=== PATIENT | female | born 1995 | race American Indian/Alaskan Native ===

== ENCOUNTER 2024-05-01 22:33 | Emergency (ER) | payer MEDICAID, SELFPAY ==
[2024-05-01 22:47] VITALS: PULSE 98; RESP 21; O2SAT 100
[2024-05-01 22:50] VITALS: BP 118/69; PULSE 97; RESP 13; TEMP 37.4; O2SAT 98; BMI 22.3
--- NOTE | 2024-05-01 22:56 | DI.RAD.S_ITS ---
PROCEDURE: XR CHEST 1V INDICATIONS: chest pain TECHNIQUE: One view of the chest was acquired. COMPARISON: None. FINDINGS: Surgical changes and devices: Median sternotomy wires and prosthetic heart valves are seen Lungs and pleura: Lungs are clear. No pleural effusions or pneumothorax. Mediastinum: Mediastinal contours appear normal. Heart size is normal. Bones and chest wall: No suspicious bony lesions. Overlying soft tissues appear unremarkable. IMPRESSION: No acute cardiopulmonary pathology. Dictated by: Chai Trevino M.D. on 05/01/2024 at 23:10 Approved by: Chai Trevino M.D. on 05/01/2024 at 23:11
--- NOTE | 2024-05-01 22:56 | EKG_ITS ---
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
[2024-05-01 23:00] VITALS: BP 114/55; PULSE 99; RESP 15; O2SAT 99
[2024-05-01 23:03] LABS: Add Manual Diff / Slide Review NO; Basophils Absolute Auto 100 /uL (0-100); Basophils Percent Auto 0.7 % (0-2); Eosinophils Absolute Auto 0 /uL (0-450); Eosinophils Percent Auto 0.5 % (2-4); Hematocrit 35.5 % (36-46); Hemoglobin 11.6 g/dL (12.0-16.0); Lymphocytes Absolute Auto 1300 /uL (1100-4500); Lymphocytes Percent Auto 15.8 % (25-40); Mean Corpuscular HGB Conc 32.8 % (30-36); Mean Corpuscular Hemoglobin 25.5 PG (26-34); Mean Corpuscular Volume 77.8 fL (80-100); Monocytes Absolute Auto 600 /uL (0-900); Neutrophils Absolute Auto 6100 /uL (1500-7000); Platelet Count 282 X10^3/uL (150-400); Red Blood Cell Count 4.56 X10^6/uL (4.0-5.2); Red Cell Distribution Width 15.9 % (11.6-14.8)
--- NOTE | 2024-05-01 23:10 | ED.CHESTPAIN ---
HPI - Chest Pain General Chief Complaint: Chest Pain Stated Complaint: fast heart rate, has mech. 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 Patient reports fatigue, fast heart rate, lightheadedness, intermittent chest pains, left upper extremity weakness. These symptoms has been ongoing for nearly 1 month. They report multiple visits to [facility] in [place], but no cause has been found. Patient's last visit to the emergency department was 04/18/2024, where an echocardiogram showed EF of 65% without wall motion abnormalities or other concerning findings. A Zio patch was placed and patient was sent home. Parents at bedside state that they are frustrated at the lack of answers and they are at a different facility today to see if they can find answers for why their daughter is having so many symptoms. Patient states that since her last ER visit her left upper extremity has felt weaker than usual. This has been ongoing for the last 3 weeks, worse in the last 1 week. Visit report from [facility] show ED visits 04/09, 04/16, and 04/18. Related Data Home Medications Medication Instructions Recorded Confirmed hydroxyzine HCl 25 mg tablet 25 mg PO Q8H PRN anxiety 05/02/24 05/02/24 warfarin 1 mg tablet 0.5 mg PO DAILY 05/02/24 05/02/24 warfarin 5 mg tablet 5 mg PO DAILY 05/02/24 05/02/24 Allergies Allergy/AdvReac Type Severity Reaction Status Date / Time No Known Drug Allergies Allergy Verified 05/02/24 00:22 Patient History Social History Smoking Status: Never smoker Smoking Status: Never smoker Substance Use Type: does not use Exam Initial Vital Signs Initial Vital Signs: Vital Signs Pulse Rate 98 H 05/01/24 22:47 Respiratory Rate 21 05/01/24 22:47 Pulse Oximetry 100 05/01/24 22:47 Const: Awake, alert, appears chronically unwell appearing, frail, older than stated age, nontoxic appearing Cardiac: regular rate, regular rhythm RESP: unlabored, clear bilaterally, no wheezing GI: Soft, nontender, nondistended, no rebound, no guarding MSK: No edema, full range of motion, pulses equal Skin: Warm, Dry, intact, no rashes Neuro: AO x3, CN II-XII grossly intact, moves all extremities Course Orders Ordered: ED Orders 05/01/24 22:56 XR chest 1V Stat Complete Blood Count AUTO DIFF Stat Comprehensive Metabolic Panel Stat Lipase Stat Troponin & CK Cardiac Panel Stat EKG-12 Lead Stat 05/02/24 00:14 Prothrombin Time INR Stat Urine Drug Screen, Rapid Stat 05/02/24 00:16 CT head/brain wo con Stat 05/02/24 00:17 CT angio chest PE protocol Stat 05/02/24 00:21 CT angio head and neck Stat Discontinued Medications Hydroxyzine HCl (Hydroxyzine Hcl 25 Mg Tablet) 50 mg PO NOW ONE Stop: 05/02/24 00:29 Last Admin: 05/02/24 00:32 Dose: 50 mg Documented By: Sodium Chloride (Normal Saline 0.9%) 1,000 mls @ 1,000 mls/hr IV BOLUS ONE Stop: 05/02/24 01:15 Last Infusion: 05/02/24 02:15 Dose: Infused Documented By: Infusion: 05/02/24 01:00 Dose: 1,000 mls/hr Documented By: Infusion: 05/02/24 00:23 Dose: 0 mls/hr Documented By: Admin: 05/02/24 00:22 Dose: 1,000 mls/hr Documented By: Vital Signs Vital signs: Vital Signs - 8 hr 05/01/24 22:47 05/01/24 22:50 05/01/24 23:00 Temperature 99.3 F Pulse Rate 98 H 97 H 99 H Respiratory Rate 21 13 15 Blood Pressure 118/69 Pulse Oximetry 100 98 99 Oxygen Delivery Method Room Air 05/01/24 23:00 05/01/24 23:34 05/01/24 23:34 Temperature Pulse Rate 94 H Respiratory Rate Blood Pressure 114/55 L 105/64 Pulse Oximetry 100 Oxygen Delivery Method Room Air 05/02/24 00:00 05/02/24 00:00 05/02/24 00:30 Temperature Pulse Rate 96 H 93 H Respiratory Rate 19 17 Blood Pressure 100/56 L Pulse Oximetry 99 99 Oxygen Delivery Method Room Air 05/02/24 00:30 05/02/24 00:59 05/02/24 00:59 Temperature Pulse Rate 86 Respiratory Rate 19 Blood Pressure 95/62 103/62 Pulse Oximetry 100 Oxygen Delivery Method 05/02/24 01:00 05/02/24 01:00 05/02/24 01:30 Temperature Pulse Rate 88 87 84 Respiratory Rate 21 16 17 Blood Pressure 103/65 Pulse Oximetry 100 100 100 Oxygen Delivery Method Room Air 05/02/24 01:30 05/02/24 02:00 05/02/24 02:00 Temperature Pulse Rate 88 Respiratory Rate 14 Blood Pressure 98/61 101/59 L Pulse Oximetry 100 Oxygen Delivery Method 05/02/24 02:16 05/02/24 02:16 05/02/24 02:30 Temperature Pulse Rate 86 84 Respiratory Rate 16 19 Blood Pressure 106/61 Pulse Oximetry 100 100 Oxygen Delivery Method 05/02/24 02:30 Temperature Pulse Rate Respiratory Rate Blood Pressure 106/61 Pulse Oximetry Oxygen Delivery Method MDM - Chest Pain Differential Diagnosis Differential diagnosis: Likely atypical chest pain, costochondritis and chest pain Lab Data 05/01/24 22:56 05/01/24 22:56 Labs: Lab Results 05/01/24 05/01/24 Range/Units 22:56 23:39 WBC 8.0 (4.5-11.0) X10^3/uL RBC 4.56 (4.0-5.2) X10^6/uL Hgb 11.6 L (12.0-16.0) g/dL Hct 35.5 L (36-46) % MCV 77.8 L (80-100) fL MCH 25.5 L (26-34) PG MCHC 32.8 (30-36) % RDW 15.9 H (11.6-14.8) % Plt Count 282 (150-400) X10^3/uL Neut % (Auto) 76.0 H (50-75) % Lymph % (Auto) 15.8 L (25-40) % [place] % (Auto) 7.0 (3-14) % Eos % (Auto) 0.5 L (2-4) % Baso % (Auto) 0.7 (0-2) % Neut # (Auto) 6100 (0067-2938) /uL Lymph # (Auto) 1300 (8546-1593) /uL [place] # (Auto) 600 (0-900) /uL Eos # (Auto) 0 (0-450) /uL Baso # (Auto) 100 (0-100) /uL PT 20.0 H (9.4-12.5) SECONDS INR 1.7 H (0.9-1.3) Sodium 138 (137-145) mmol/L Potassium 3.7 (3.4-5.1) mmol/L Chloride 104 (98-107) mmol/L Carbon Dioxide 23 (22-32) mmol/L BUN 5 L (7-17) mg/dL Creatinine 0.63 (0.52-1.04) mg/dL Estimated GFR > 60 (>60) mL/min BUN/Creatinine Ratio 7.9 (6-22) Glucose 93 (70-100) mg/dL Calcium 9.1 (8.4-10.2) mg/dL Total Bilirubin 0.6 (0.2-1.3) mg/dL AST 37 H (14-36) IU/L ALT 29 (<35) IU/L Alkaline Phosphatase 41 (38-126) U/L Total Creatine Kinase 38 (30-135) U/L Troponin I < 0.012 (0.01-0.034) ng/mL Total Protein 7.5 (6.3-8.2) g/dL Albumin 4.4 (3.5-5.0) g/dL Globulin 3.1 (1.7-4.1) g/dL Albumin/Globulin Ratio 1.4 (1.0-2.8) Lipase 154 (23-300) U/L U Opiates 300ng/mL cut Negative (Negative) Ur Oxycodone Screen Negative (Negative) Urine Methadone Screen Negative (Negative) Ur Barbiturates Screen Negative (Negative) U Tricyclic Antidepress Negative (Negative) Ur Phencyclidine Scrn Negative (Negative) Ur Amphetamines Screen Negative (Negative) U Methamphetamines Scrn Negative (Negative) Ur MDMA Scrn (Ecstasy) Negative (Negative) U Benzodiazepines Scrn Negative (Negative) Urine Cocaine Screen Negative (Negative) U Marijuana (THC) Screen Positive H (Negative) Urine pH Normal (Normal) Urine Specific [place] Normal (Normal) Ur Creatinine Normal (Normal) Point of Care Testing Test Results Negative Urine Dip Bedside Urine Glucose Negative Bedside Urine Bilirubin - Negative Bedside Urine Ketone - Negative Urine Specific [place] 1.015 Bedside Urine Occult Blood - Negative Bedside Urine pH 6.0 Bedside Urine Protein - Negative Bedside Urine Urobilinogen - Negative Bedside Urine Nitrite - Negative Bedside Urine Leukocytes - Negative Esterase Imaging Data CT scan - head: Radiologist's Impression: PROCEDURE: CT HEAD/BRAIN WO CON INDICATIONS: L ARM WEAKNESS X 3 WKS, WORSENING TECHNIQUE: Noncontrast 4.5 mm thick angled axial sections acquired from the foramen magnum to the vertex, with coronal and sagittal reformats. For radiation dose reduction, the following was used: automated exposure control, adjustment of mA and/or kV according to patient size. COMPARISON: None. FINDINGS: Image quality: Diagnostic. CSF spaces: Basal cisterns are patent. No extra-axial fluid collections. Ventricles are normal in size and shape. Brain: No midline shift. No intracranial masses or hemorrhage. Gonzalez-white matter interface is normal. Skull and face: Calvarium and visualized facial bones are intact, without suspicious lesions. Sinuses: Visualized sinuses and mastoids are clear. IMPRESSION: No acute intracranial pathology. Dictated by: Chai Trevino M.D. on 05/02/2024 at 1:18 Approved by: Chai Trevino M.D. on 05/02/2024 at 1:19 CT scan - chest: Radiologist's Impression: PROCEDURE: CT ANGIO CHEST PE PROTOCOL INDICATIONS: CHEST PAINS, PALPITATIONS, MULTIPLE ER VISITS TECHNIQUE: After the administration of intravenous contrast, 2 mm thick sections acquired from the pulmonary apices to the posterior costophrenic angles. 3-dimensional maximum intensity projection (MIP) coronal and sagittal reformats were then acquired through the thorax. For radiation dose reduction, the following was used: automated exposure control, adjustment of mA and/or kV according to patient size. COMPARISON: None. FINDINGS: Image quality: Diagnostic. Pulmonary arteries: Pulmonary arteries are normal in size, and demonstrate no intraluminal filling defects to suggest central pulmonary embolism. Lower Neck: No enlarged lymph nodes. Thyroid: No thyroid nodules which require sonographic follow up, per consensus guidelines. Axillae: No enlarged lymph nodes. Chest Wall: Medius stenotic me wires and surgical clips are seen. Bones: Unremarkable. Lungs and Pleura: No pneumothorax or pleural effusions. No consolidation or suspicious nodules. Heart: Heart size is normal. No pericardial effusion. Prosthetic heart valves are seen. Thoracic Vessels: No aortic aneurysm. No thoracic aortic dissection. Mediastinum and Jaida: No enlarged lymph nodes. Esophagus: No wall thickening. No hiatal hernia. Upper Abdomen: Visualized upper abdomen solid organs and bowel loops appear normal. IMPRESSION: 1. No pulmonary embolus. No thoracic aortic aneurysm or dissection. 2. Prior cardiac surgery. Multiple heart valves are seen. No pericardial effusion. No mediastinal or hilar lymphadenopathy. 3. Bilateral lungs are clear. Dictated by: Chai Trevino M.D. on 05/02/2024 at 1:21 Approved by: Chai Trevino M.D. on 05/02/2024 at 1:27 CTA - brain/neck: Radiologist's Impression: PROCEDURE: CT ANGIO HEAD AND NECK INDICATIONS: L ARM WEAKNESS X 3 WKS, WORSENING TECHNIQUE: After the administration of intravenous contrast, 1 mm thick sections acquired from the aortic arch through the [place] of See. 3-dimensional lfeimcm-xuilxuexg-autcgodeva (MIP) and/or volume rendering reformats were acquired of the central intracranial vasculature and neck separately. For radiation dose reduction, the following was used: automated exposure control, adjustment of mA and/or kV according to patient size. COMPARISON: None. FINDINGS: Image quality: Diagnostic. BRAIN: CSF spaces: Ventricles are normal in size and shape. Basal cisterns are patent. No extra-axial fluid collections. Brain: No significant abnormality of the brain can be seen. No area of abnormal intracranial enhancement. Skull and face: Calvarium and facial bones appear intact, without suspicious lesions. Orbits appear normal. Sinuses: Sinuses and mastoids are clear. HEAD CT ANGIOGRAPHY: Anterior circulation: Intracranial internal carotid arteries are normal in size and flow. The flow within the paired anterior cerebral arteries is normal and symmetric. The flow within the middle cerebral arteries is normal and symmetric. The anterior communicating artery is seen. No aneurysms are seen. Posterior circulation: Visualized portions of the vertebral arteries demonstrate normal caliber, and join to form a normal appearing basilar artery. Flow within the posterior cerebral arteries is normal and symmetric. No aneurysms are seen. NECK CT ANGIOGRAPHY: Carotid system: The great vessels demonstrate a conventional anatomy as they arise from the aortic arch. The origins of the common carotid arteries appear patent. The common carotid arteries demonstrate normal caliber and courses. The bifurcation regions are both widely patent. The internal carotid arteries demonstrate normal calibers and courses. Posterior circulation: The origins of the vertebral arteries both appear widely patent. The more superior extracranial portions of both vertebral arteries also demonstrate normal courses and calibers. They join to form a normal appearing basilar artery. Soft tissues: Visualized neck soft tissues demonstrate no suspicious abnormalities. Bones: No suspicious bony lesions. Visualized cervical spine appears normally aligned. IMPRESSION: 1. No hemodynamically significant stenosis or aneurysm is seen in the intracranial circulation. 2. No hemodynamically significant stenosis is seen in bilateral neck arteries. Any quantitative measurements of stenosis were performed using NASCET criteria. Dictated by: Chai Trevino M.D. on 05/02/2024 at 1:19 Approved by: Chai Trevino M.D. on 05/02/2024 at 1:21 ECG Data Interpretation: Normal sinus rhythm at 97 beats per minute, normal LA, no ST T wave changes, no STEMI MDM Narrative Medical decision making narrative: Chronically unwell appearing patient presenting for persistent symptoms, this is patient's 4th visit in the last month for same complaint. Exam is unremarkable. Patient was reporting left extremity weakness but she was able to move all extremities with equal strength, fine motor skills intact, no obvious deficits on exam. Records requested from [facility] for review. Extensive records obtained from [facility] including multiple lab evaluations, chest x-rays, recent echocardiogram, cardiology consultation. Per [facility] note it was not felt that patient's cardiac history is related to her symptoms, but no specific etiologies identified. Since this is patient's 4th visit in short amount of time for these complaints and she has not had CT imaging a CT brain, CT angio head and neck, CT angio chest ordered to rule out emergent pathology that could be contributing to patient's reported symptoms of chest pain, shortness of breath, left-sided weakness. Laboratory work is reviewed, no significant abnormalities identified. Troponin undetectable, electrolytes within normal limits. Patient's INR is subtherapeutic at 1.7, she states her goal is between 2.5-3.5. All imaging negative for acute findings. CT angio clear of any signs of PE or masses, CT angio head and neck negative for dissection, thrombus, stenosis. CT brain negative for new or old infarct. Reached out to [employer], however they are unable to obtain remote information of patient's patch. All lab and imaging findings discussed with the patient and her parents at bedside. No obvious explainations for symptoms, however patient was recommended to closely follow up with her cardiology team to see if any additional testing or treatment options could be found. A copy of CT reports and CT discs given to patient and parents prior to discharge. Discharge Plan Departure Patient Disposition: Home Clinical Impression: Chest pain, Tachycardia Instructions: DI for Atypical Chest Pain, DI for Arrhythmias Activity Restrictions/Additional Instructions: The laboratory work today showed they have an INR of 1.7, however no signs of heart attack or blood clots. CT imaging of your chest, head, and neck did not show any blood clots, strokes, blockages, or any other obvious cause for symptoms. Continue to follow up with your cardiology office concerning your heart monitor and Zio patch. Prescriptions: No Action warfarin 1 mg Tablet 0.5 mg PO DAILY Patient Comments: Total daily dose 5.5 mg warfarin 5 mg Tablet 5 mg PO DAILY Patient Comments: Total daily dosing 5.5 mg hydroxyzine HCl 25 mg tablet 25 mg PO Q8H PRN (Reason: anxiety) Stand Alone Forms: Patient Portal/API
[2024-05-01 23:14] LABS: Alanine Aminotransferase 29 IU/L (<35); Albumin 4.4 g/dL (3.5-5.0); Albumin Globulin Ratio 1.4 (1.0-2.8); Alkaline Phosphatase 41 U/L (38-126); Aspartate Aminotransferase 37 IU/L (14-36); BUN Creatinine Ratio 7.9 (6-22); Bilirubin Total 0.6 mg/dL (0.2-1.3); Blood Urea Nitrogen 5 mg/dL (7-17); Calcium 9.1 mg/dL (8.4-10.2); Carbon Dioxide 23 mmol/L (22-32); Chloride 104 mmol/L (98-107); Creatine Kinase 38 U/L (30-135); Estimated Glomerular Filt Rate > 60 mL/min (>60); Globulin 3.1 g/dL (1.7-4.1); Glucose 93 mg/dL (70-100); HEMOLYSIS < 15 (0-50); Lipase 154 U/L (23-300); Potassium 3.7 mmol/L (3.4-5.1); Sodium 138 mmol/L (137-145); Total Protein 7.5 g/dL (6.3-8.2)
[2024-05-01 23:26] LABS: Troponin I < 0.012 ng/mL (0.01-0.034)
[2024-05-01 23:34] VITALS: BP 105/64; PULSE 94; O2SAT 100
[2024-05-02] VITALS (8 sets, daily range): BP systolic 95–106; BP diastolic 56–65; PULSE 84–96; RESP 14–21; O2SAT 99–100
--- NOTE | 2024-05-02 00:16 | DI.CT.S_ITS ---
PROCEDURE: CT HEAD/BRAIN WO CON INDICATIONS: L ARM WEAKNESS X 3 WKS, WORSENING TECHNIQUE: Noncontrast 4.5 mm thick angled axial sections acquired from the foramen magnum to the vertex, with coronal and sagittal reformats. For radiation dose reduction, the following was used: automated exposure control, adjustment of mA and/or kV according to patient size. COMPARISON: None. FINDINGS: Image quality: Diagnostic. CSF spaces: Basal cisterns are patent. No extra-axial fluid collections. Ventricles are normal in size and shape. Brain: No midline shift. No intracranial masses or hemorrhage. Gonzalez-white matter interface is normal. Skull and face: Calvarium and visualized facial bones are intact, without suspicious lesions. Sinuses: Visualized sinuses and mastoids are clear. IMPRESSION: No acute intracranial pathology. Dictated by: Chai Trevino M.D. on 05/02/2024 at 1:18 Approved by: Chai Trevino M.D. on 05/02/2024 at 1:19
--- NOTE | 2024-05-02 00:17 | DI.CT.S_ITS ---
PROCEDURE: CT ANGIO CHEST PE PROTOCOL INDICATIONS: CHEST PAINS, PALPITATIONS, MULTIPLE ER VISITS TECHNIQUE: After the administration of intravenous contrast, 2 mm thick sections acquired from the pulmonary apices to the posterior costophrenic angles. 3-dimensional maximum intensity projection (MIP) coronal and sagittal reformats were then acquired through the thorax. For radiation dose reduction, the following was used: automated exposure control, adjustment of mA and/or kV according to patient size. COMPARISON: None. FINDINGS: Image quality: Diagnostic. Pulmonary arteries: Pulmonary arteries are normal in size, and demonstrate no intraluminal filling defects to suggest central pulmonary embolism. Lower Neck: No enlarged lymph nodes. Thyroid: No thyroid nodules which require sonographic follow up, per consensus guidelines. Axillae: No enlarged lymph nodes. Chest Wall: Medius stenotic me wires and surgical clips are seen. Bones: Unremarkable. Lungs and Pleura: No pneumothorax or pleural effusions. No consolidation or suspicious nodules. Heart: Heart size is normal. No pericardial effusion. Prosthetic heart valves are seen. Thoracic Vessels: No aortic aneurysm. No thoracic aortic dissection. Mediastinum and Jaida: No enlarged lymph nodes. Esophagus: No wall thickening. No hiatal hernia. Upper Abdomen: Visualized upper abdomen solid organs and bowel loops appear normal. IMPRESSION: 1. No pulmonary embolus. No thoracic aortic aneurysm or dissection. 2. Prior cardiac surgery. Multiple heart valves are seen. No pericardial effusion. No mediastinal or hilar lymphadenopathy. 3. Bilateral lungs are clear. Dictated by: Chai Trevino M.D. on 05/02/2024 at 1:21 Approved by: Chai Trevino M.D. on 05/02/2024 at 1:27
--- NOTE | 2024-05-02 00:21 | DI.CT.S_ITS ---
PROCEDURE: CT ANGIO HEAD AND NECK INDICATIONS: L ARM WEAKNESS X 3 WKS, WORSENING TECHNIQUE: After the administration of intravenous contrast, 1 mm thick sections acquired from the aortic arch through the [place] of See. 3-dimensional rgglfsh-wqkokrgnc-xpuyhadkfo (MIP) and/or volume rendering reformats were acquired of the central intracranial vasculature and neck separately. For radiation dose reduction, the following was used: automated exposure control, adjustment of mA and/or kV according to patient size. COMPARISON: None. FINDINGS: Image quality: Diagnostic. BRAIN: CSF spaces: Ventricles are normal in size and shape. Basal cisterns are patent. No extra-axial fluid collections. Brain: No significant abnormality of the brain can be seen. No area of abnormal intracranial enhancement. Skull and face: Calvarium and facial bones appear intact, without suspicious lesions. Orbits appear normal. Sinuses: Sinuses and mastoids are clear. HEAD CT ANGIOGRAPHY: Anterior circulation: Intracranial internal carotid arteries are normal in size and flow. The flow within the paired anterior cerebral arteries is normal and symmetric. The flow within the middle cerebral arteries is normal and symmetric. The anterior communicating artery is seen. No aneurysms are seen. Posterior circulation: Visualized portions of the vertebral arteries demonstrate normal caliber, and join to form a normal appearing basilar artery. Flow within the posterior cerebral arteries is normal and symmetric. No aneurysms are seen. NECK CT ANGIOGRAPHY: Carotid system: The great vessels demonstrate a conventional anatomy as they arise from the aortic arch. The origins of the common carotid arteries appear patent. The common carotid arteries demonstrate normal caliber and courses. The bifurcation regions are both widely patent. The internal carotid arteries demonstrate normal calibers and courses. Posterior circulation: The origins of the vertebral arteries both appear widely patent. The more superior extracranial portions of both vertebral arteries also demonstrate normal courses and calibers. They join to form a normal appearing basilar artery. Soft tissues: Visualized neck soft tissues demonstrate no suspicious abnormalities. Bones: No suspicious bony lesions. Visualized cervical spine appears normally aligned. IMPRESSION: 1. No hemodynamically significant stenosis or aneurysm is seen in the intracranial circulation. 2. No hemodynamically significant stenosis is seen in bilateral neck arteries. Any quantitative measurements of stenosis were performed using NASCET criteria. Dictated by: Chai Trevino M.D. on 05/02/2024 at 1:19 Approved by: Chai Tervino M.D. on 05/02/2024 at 1:21
[2024-05-02] MEDS: SODIUM CHLORIDE 0.9% 1,000 ML 1000 ML IV (00:22)
[2024-05-02 00:29] LABS: INR 1.7 (0.9-1.3)
[2024-05-02] MEDS: hydrOXYzine HCL 25 MG TABLET 50 MG PO (00:32)
[2024-05-02 02:26] LABS: UR Morphine/Opiate cutoff 300 Negative (Negative); Ur Creatinine Normal (Normal); Ur Specific Gravity Normal (Normal); Urine Amphetamines Negative (Negative); Urine Barbiturates Negative (Negative); Urine Benzodiazepines Negative (Negative); Urine Cocaine Negative (Negative); Urine MDMA Negative (Negative); Urine Methadone Negative (Negative); Urine Methamphetamines Negative (Negative); Urine Oxycodone Negative (Negative); Urine Phencyclidine Negative (Negative); Urine Tetrahydrocannabinol Positive (Negative); Urine Tricyclic Antidepressant Negative (Negative); Urine pH Normal (Normal)
== END 2024-05-02 03:00 | disposition home or self-care (01) ==
PROVIDERS: Emergency Provider Emergency Medicine
DX: R07.9 Chest pain, unspecified (principal); R00.0 Tachycardia, unspecified; R53.1 Weakness; Z95.2 Presence of prosthetic heart valve; Z86.73 Personal history of transient ischemic attack (TIA), and cerebral infarction without residual deficits
CPT/HCPCS: 36415; 70450; 70496; 70498; 71045; 71275; 80053; 80305; 81003; 81025; 82550; 83690; 84484; 85025; 85610; 93005; 96360; 99284; A9270; Q9967